=== PATIENT | female | born 1990 | race Caucasian/White ===

== ENCOUNTER 2017-04-09 20:50 | Emergency (ER) | payer OTHER ==
[2017-04-09 22:12] VITALS: BP 117/72
[2017-04-09] MEDS ORDERED: MOTRIN PO ONE (23:38)
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
== END 2017-04-10 00:50 | disposition home or self-care (01) ==
LOC: ED 20:50
DX: S13.4XXA Sprain of ligaments of cervical spine, initial encounter (principal); S39.012A Strain of muscle, fascia and tendon of lower back, initial encounter; V49.49XA Driver injured in collision with other motor vehicles in traffic accident, initial encounter; Y93.9 Activity, unspecified; Y92.9 Unspecified place or not applicable; Y99.9 Unspecified external cause status
CPT/HCPCS: 72040; 72100